=== PATIENT | male | born 1975 | race African-American/Black ===

== ENCOUNTER 2018-05-15 20:08 | Emergency (ER) | payer OTHER ==
[~2018-05-15] VITALS: Ht 172.7 cm; Wt 111.1 kg
[2018-05-15 20:16] VITALS: BP 147/85
--- NOTE | 2018-05-15 20:19 | NUR ---
ED Nurse Note: Patient JODY RA 89 in [employer] custody c/o medical clearance for 1x episode of vomiting. Per [employer] it was undigested food. pt is alert and oriented times 4. no skin tenting noted. cap refill is less than 3. pulse and sensation is noted on all extremities. pt complains of vomit times 1 that is pink color an hr prior to triag.
[2018-05-15] MEDS ORDERED: Ketorolac 30mg Inj IV ONE (20:45)
[2018-05-15] MEDS ORDERED: Isovue-300 100ml vial INJ PRN (20:45)
[2018-05-15 20:58] LABS: BASOPHILS % (AUTO) 1.2 % (0.0-2.0); EOSINOPHILS % (AUTO) 0.7 % (0.0-3.0); HEMATOCRIT 41.9 % (42.0-52.0); HEMOGLOBIN 13.3 G/DL (14.2-18.0); LYMPHOCYTES % (AUTO) 14.7 % (20.0-45.0); MEAN CORPUSCULAR VOLUME 93 FL (80-99); MONOCYTES % (AUTO) 4.3 % (1.0-10.0); NEUTROPHILS % (AUTO) 79.1 % (45.0-75.0); PLATELET COUNT 219 K/UL (150-450); RED BLOOD COUNT 4.49 M/UL (4.70-6.10); RED CELL DISTRIBUTION WIDTH 11.7 % (11.6-14.8); WHITE BLOOD COUNT 12.2 K/UL (4.8-10.8)
[2018-05-15 21:21] LABS: ANION GAP 5 mmol/L (5-15); BLOOD UREA NITROGEN 16 mg/dL (7-18); CARBON DIOXIDE 30 MMOL/L (21-32); CHLORIDE 105 MMOL/L (98-107); CREATININE 1.2 MG/DL (0.55-1.30); POTASSIUM 3.9 MMOL/L (3.5-5.1); SODIUM 140 MMOL/L (136-145)
[2018-05-15 21:25] LABS: ALANINE AMINOTRANSFERASE 33 U/L (12-78); ALBUMIN 3.9 G/DL (3.4-5.0); ALBUMIN/GLOBULIN RATIO 0.9 (1.0-2.7); ALKALINE PHOSPHATASE 78 U/L (46-116); ASPARTATE AMINO TRANSFERASE 27 U/L (15-37); BILIRUBIN,TOTAL 0.7 MG/DL (0.2-1.0)
[2018-05-15 21:40] LABS: APPEARANCE,URINE CLEAR; BILIRUBIN, URINE NEGATIVE (NEGATIVE); GLUCOSE, URINE (UA) NEGATIVE (NEGATIVE); KETONES,URINE NEGATIVE (NEGATIVE); LEUKOCYTE ESTERASE ,URINE 1+ (NEGATIVE); NITRITE,URINE NEGATIVE (NEGATIVE); PH,URINE 7 (4.5-8.0); PROTEIN,URINE NEGATIVE (NEGATIVE); UROBILINOGEN,URINE 4 MG/DL (0.0-1.0)
[2018-05-15 21:41] LABS: COLOR,URINE YELLOW
--- NOTE | 2018-05-15 22:26 | Emergency Room Report ---
History of Present Illness General Chief Complaint: Vomiting Source: Patient Present Illness HPI The patient was brought by EMS in custody. He was in residential and started having flank pain with vomiting. He still feels nauseated at this time. He rates the pain 6/10 left flank radiating to his groin area. Denies having documented fever or chills although he felt flushed just before vomiting. The pain is a pressure more than sharp or aching. No blood in the vomit. No diarrhea. No dysuria or hematuria. No trauma. Patient has a history of renal stones in the past. He cannot remember if it felt like this. History of asthma. No cough or wheezing. He also denies chest pain. History of sciatica. This feels different than the sciatic pain. Denies back pain at the moment. Allergies: Coded Allergies: PENICILLINS (Verified Allergy, Unknown, 05/15/18) Patient History Past Medical History: see triage record Social History: Reports: smoking Social History Narrative In residential due to outstanding warrants Reviewed Nursing Documentation: PMH: Agreed; PSxH: Agreed Nursing Documentation-PMH Past Medical History: No History, Except For Hx Asthma: Yes - sciatic nerve pain Review of Systems All Other Systems: negative except mentioned in HPI Physical Exam Vital Signs Date Time Temp Pulse Resp B/P (MAP) Pulse Ox O2 Delivery O2 Flow Rate FiO2 05/15/18 20:11 97.9 62 18 147/85 100 Room Air 05/15/18 20:16 99 Sp02 EP Interpretation: reviewed, normal General Appearance: well appearing, no apparent distress, alert, non-toxic, other - Keeps eyes closed except when answering questions Head: normocephalic, atraumatic Eyes: bilateral eye normal inspection, bilateral eye PERRL, bilateral eye EOMI ENT: moist mucus membranes Neck: supple Respiratory: lungs clear, normal breath sounds Cardiovascular #1: regular rate, rhythm Cardiovascular #2: 2+ radial (R) Gastrointestinal: normal inspection, normal bowel sounds, non tender, no mass, non-distended, no guarding, no rebound, tenderness - Slight tenderness left lower quadrant Genitourinary: other - Slight left CVA tenderness Musculoskeletal: back normal, gait/station normal, normal range of motion Neurologic: alert, oriented x3, grossly normal Psychiatric: mood/affect normal Skin: normal inspection, warm/dry Medical Decision Making Diagnostic Impression: Primary Impression: Flank pain Additional Impressions: Vomiting Qualified Codes: R11.2 - Nausea with vomiting, unspecified UTI (urinary tract infection) Qualified Codes: N39.0 - Urinary tract infection, site not specified ER Course Patient presents with nausea vomiting flank pain. Differential includes renal stone, gastroenteritis, UTI, food poisoning amongst others. Evaluation will be with labs and CT. The patient will be treated with IV hydration, Zofran and Toradol. White count slightly elevated. Normal renal function. There is pyuria. Rocephin is given IV. Patient tolerating oral fluids. Nausea is better and also pain is decreased. Discussed findings with patient and the need for close outpatient observation. Also discussed treatment plan. (The patient is in custody and has [facility] [facility] if he is not doing well.). Patient stable for outpatient observation and treatment. Laboratory Tests Test 05/15/18 20:45 05/15/18 21:20 White Blood Count 12.2 K/UL (4.8-10.8) H Red Blood Count 4.49 M/UL (4.70-6.10) L Hemoglobin 13.3 G/DL (14.2-18.0) L Hematocrit 41.9 % (42.0-52.0) L Mean Corpuscular Volume 93 FL (80-99) Mean Corpuscular Hemoglobin 29.7 PG (27.0-31.0) Mean Corpuscular Hemoglobin Concent 31.9 G/DL (32.0-36.0) L Red Cell Distribution Width 11.7 % (11.6-14.8) Platelet Count 219 K/UL (150-450) Mean Platelet Volume 6.9 FL (6.5-10.1) Neutrophils (%) (Auto) 79.1 % (45.0-75.0) H Lymphocytes (%) (Auto) 14.7 % (20.0-45.0) L Monocytes (%) (Auto) 4.3 % (1.0-10.0) Eosinophils (%) (Auto) 0.7 % (0.0-3.0) Basophils (%) (Auto) 1.2 % (0.0-2.0) Sodium Level 140 MMOL/L (136-145) Potassium Level 3.9 MMOL/L (3.5-5.1) Chloride Level 105 MMOL/L (98-107) Carbon Dioxide Level 30 MMOL/L (21-32) Anion Gap 5 mmol/L (5-15) Blood Urea Nitrogen 16 mg/dL (7-18) Creatinine 1.2 MG/DL (0.55-1.30) Estimate Glomerular Filtration Rate > 60 mL/min (>60) Glucose Level 98 MG/DL (74-106) Calcium Level 9.0 MG/DL (8.5-10.1) Total Bilirubin 0.7 MG/DL (0.2-1.0) Aspartate Amino Transferase (AST) 27 U/L (15-37) Alanine Aminotransferase (ALT) 33 U/L (12-78) Alkaline Phosphatase 78 U/L (46-116) Total Protein 8.3 G/DL (6.4-8.2) H Albumin 3.9 G/DL (3.4-5.0) Globulin 4.4 g/dL Albumin/Globulin Ratio 0.9 (1.0-2.7) L Lipase 211 U/L (73-393) Urine Color Yellow Urine Appearance Clear Urine pH 7 (4.5-8.0) Urine Specific [place] 1.010 (1.005-1.035) Urine Protein Negative (NEGATIVE) Urine Glucose (UA) Negative (NEGATIVE) Urine Ketones Negative (NEGATIVE) Urine Blood 4+ (NEGATIVE) H Urine Nitrite Negative (NEGATIVE) Urine Bilirubin Negative (NEGATIVE) Urine Urobilinogen 4 MG/DL (0.0-1.0) H Urine Leukocyte Esterase 1+ (NEGATIVE) H Urine RBC 10-15 /HPF (0 - 0) H Urine WBC 5-10 /HPF (0 - 0) H Urine Squamous Epithelial Cells Occasional /LPF Urine Bacteria Few /HPF (NONE) CT/MRI/US Diagnostic Results CT/MRI/US Diagnostic Results : Imaging Test Ordered: abd pelvis Impression No acute abnormality No acute findings. Normal appendix. Right renal cyst. Query cystitis with mild thickening of the wall the urinary bladder. Correlate clinically. Last Vital Signs Date Time Temp Pulse Resp B/P (MAP) Pulse Ox O2 Delivery O2 Flow Rate FiO2 05/15/18 23:12 97.9 63 16 150/89 94 Room Air 05/15/18 20:16 99 Status: improved Disposition: D/C TO LAW ENFORCEMENT IN CUST Condition: Improved Scripts Acetaminophen (Tylenol) 325 Mg Tablet 650 MG ORAL Q6H PRN for Prn Pain/Headache/Temp > 101, #20 TAB 0 Refills Prov: Wilver Arredondo MD 05/15/18 Ibuprofen* (MOTRIN*) 600 Mg Tablet 600 MG ORAL Q6H PRN for For Pain, #20 TAB Prov: Wilver Arredondo MD 05/15/18 Ciprofloxacin Hcl* (CIPROFLOXACIN HCL*) 500 Mg Tablet 500 MG ORAL Q12H, #20 TAB 0 Refills Prov: Wilver Arredondo MD 05/15/18 Ondansetron Odt* (ZOFRAN ODT*) 4 Mg Tab.rapdis 4 MG BC EVERY 8 HOURS, #6 TAB 1 Refill Prov: Wilver Arredondo MD 05/15/18 Referrals: NOT CHOSEN IPA/,REFERRING (PCP) Wilver Arredondo MD May 15, 2018 22:26
[2018-05-15] MEDS ORDERED: cefTRIAXone 1 GM in NS 55 ML IVPB ONE (22:30)
[2018-05-15] MEDS ORDERED: TYLENOL325 MG ORAL (22:32)
[2018-05-15] MEDS ORDERED: ONDANSETRON ODT4 MG BC (22:32)
[2018-05-15] MEDS ORDERED: IBUPROFEN600 MG ORAL (22:32)
[2018-05-15] MEDS ORDERED: CIPROFLOXACIN500 M2 ORAL (22:32)
[2018-05-15 23:12] VITALS: BP 150/89
--- NOTE | 2018-05-15 23:13 | NUR ---
ED Nurse Note: pt discharge instruction provided w/ prescription to [employer], pt education done via discussion &handout (given to [employer]), pt advised to follow up with [facility] medical staff, pt verbalized understanding and agrees with plan, pt iv removed, dressing applied, intact, wristband removed, pt vss, ambulates w/steady gait, cms intact.
--- NOTE | 2018-05-16 09:39 | Diagnostic Imaging Report ---
Indication: Abdominal pain Technique: Continuous helical transaxial imaging of the abdomen and pelvis was obtained from the lung bases to the pubic symphysis during intravenous contrast administration. Coronal 2-D reformats were also obtained. Study obtained in a Siemens sensation [address] Automatic Exposure Control was utilized. Total Dose length Product (DLP): 1466.[address] Dose Index Volume (CTDIvol): 26.2 mGy Comparison: None Findings: The appendix is normal. No evidence of bowel obstruction, free fluid or free air. There is a cyst 3.7 cm involving the right kidney. The gallbladder is unremarkable. Small hiatal hernia is present. There is minimal right basal atelectasis. There may be mild thickening of the wall the urinary bladder but the bladder is mostly nondistended. IMPRESSION: No acute findings. Normal appendix. Right renal cyst. Query cystitis with mild thickening of the wall the urinary bladder. Correlate clinically. [facility] has communicated the preliminary results to the Emergency Department. Their findings are largely concordant with this report. The CT scanner at [facility] is accredited by the [employer] and the scans are performed using dose optimization techniques as appropriate to a performed exam including Automatic Exposure control.
== END 2018-05-15 23:15 ==
LOC: EDBD 20:08 → EMR 20:36
DX: R10.9 Unspecified abdominal pain (principal); R11.2 Nausea with vomiting, unspecified; N39.0 Urinary tract infection, site not specified; N28.1 Cyst of kidney, acquired; Z88.0 Allergy status to penicillin
CPT/HCPCS: 36415; 74177; 80053; 81003; 83690; 85025; 96361; 96365; 96375; 99284; J0696; J1885; J2405; Q9967